=== PATIENT | male | born 1975 | race Caucasian/White ===

== ENCOUNTER 2021-07-30 15:34 | Inpatient (IN) ==
[2021-07-30 16:25] LABS: White Blood Count 7.4 K/mcL (4.3-11.1)
[2021-07-30 16:26] LABS: Basophils % 0.5 %; Eosinophils # 0.1 K/mcL (0.0-0.6); Eosinophils % 0.9 %; Hematocrit 46.8 % (37.5-50.1); Hemoglobin 15.7 g/dL (12.9-16.9); Immature Granulocytes % 0.4 % (0-4); Lymphocytes # 2.4 K/mcL (0.6-4.6); Lymphocytes % 32.7 %; Mean Corpuscular HGB Conc 33.5 g/dL (31.6-35.5); Mean Corpuscular Hemoglobin 28.2 pg (28.0-33.3); Mean Corpuscular Volume 84.2 fL (83.0-100.0); Mean Platelet Volume 10.1 fL (9.4-12.4); Monocytes # 0.3 K/mcL (0.0-1.3); Monocytes % 4.3 %; Neutrophils # 4.6 K/mcL (1.6-8.9); Platelet Count 308 K/mcL (140-400); Red Blood Count 5.56 M/mcL (4.19-5.50); Red Cell Distribution Width 13.3 % (11.5-14.5); Segmented Neutrophils % 61.2 %
[2021-07-30 16:27] LABS: Bilirubin,Urine Negative (Negative); Blood,Urine Negative (Negative); Clarity,Urine Clear (Clear); Color,Urine Light-Yellow (Yellow); Glucose,Urine (UA) Normal (Normal); Ketones,Urine Negative (Negative); Leukocyte Esterase,Urine Negative (Negative); Nitrite,Urine Negative (Negative); Protein,Urine Negative (Neg-Trace); Specific Gravity,Urine 1.013 (1.010-1.025); Urobilinogen,Urine Normal (Normal)
[2021-07-30 16:40] LABS: Amphetamine Screen,Urine Negative ng/mL (Cutoff=1000); Barbiturate Screen,Urine Negative ng/mL (Cutoff=200); Benzodiazepines Screen,Urine Negative ng/mL (Cutoff=200); Cannabinoid Screen,Urine Negative ng/mL (Cutoff = 50); Cocaine Screen,Urine Negative ng/mL (Cutoff= 300); Opiate Screen,Urine Negative ng/mL (Cutoff=300); Phencyclidine Screen,Urine Negative ng/mL (Cutoff=25)
[2021-07-30 16:44] LABS: Acetaminophen < 10 mcg/mL (10-20); BUN/Creatinine Ratio 11 (6-26); Blood Urea Nitrogen 12 mg/dL (6-20); Calcium 9.1 mg/dL (8.6-10.3); Carbon Dioxide 25 mEq/L (23-29); Chloride 106 mEq/L (98-107); Ethanol < 10 mg/dL (Less than 10); Glucose 104 mg/dL (70-105); Osmolality,Calculated 288 (280-300); Potassium 3.6 mEq/L (3.5-5.1); Salicylate < 2.5 mg/dL (15.0-30.0); Sodium 139 mEq/L (136-145); eGFR For African Americans > 60 (> 60); eGFR For Non-African Americans > 60 (> 60)
[2021-07-30 20:53] LABS: Influenza A PCR Negative (Negative); Influenza B PCR Negative (Negative); Resp. Syncytial Virus PCR Negative (Negative)
[2021-07-30 21:53] LABS: SARS-CoV-2 by PCR (In House) Negative (Negative)
[2021-07-30] MEDS ORDERED: *HR* LORazepam 2 MG/ML VIAL IM PRN (22:11)
[2021-07-30] MEDS ORDERED: Acetaminophen 325 MG TABLET PO PRN (22:11)
[2021-07-30] MEDS ORDERED: traZODone 50 MG TABLET PO PRN (22:11)
[2021-07-30] MEDS ORDERED: haloperidoL 5 MG TABLET PO PRN (22:11)
[2021-07-30] MEDS ORDERED: Haloperidol Lactate 5 MG/ML VIAL IM PRN (22:11)
[2021-07-30] MEDS ORDERED: *HR* LORazepam 1 MG TABLET PO PRN (22:11)
[2021-07-31] MEDS ORDERED: Nicotine 2 MG GUM BC PRN (02:47)
[2021-07-31] MEDS ORDERED: Mag Hydrox/Al Hydrox/Simeth 30 ML UDC PO PRN (08:05)
[2021-07-31] MEDS ORDERED: MOM Conc 10 ML UD.LIQ PO PRN (08:05)
[2021-07-31] MEDS: QUEtiapine Fumarate 100 MG TABLET PO SCH (20:56)
[2021-07-31] MEDS: Divalproex (12 HR) 500 MG TABLET PO SCH (20:56)
[2021-07-31] MEDS: hydrOXYzine pamoate 25 MG CAPSULE PO PRN (20:56)
[2021-08-01] MEDS: Divalproex (12 HR) 500 MG TABLET PO SCH ×2 (08:42→20:53)
[2021-08-01] MEDS: QUEtiapine Fumarate 100 MG TABLET PO SCH (20:53)
[2021-08-01] MEDS: hydrOXYzine pamoate 25 MG CAPSULE PO PRN (20:54)
[2021-08-02 08:42] VITALS: BP 120/72; PULSE 87; TEMP 96.9; O2SAT 97
[2021-08-02] MEDS: Divalproex (12 HR) 500 MG TABLET PO SCH (09:45)
== END 2021-08-02 13:04 | disposition home or self-care (01) | DRG 750 ==
LOC: EMEROOARM 15:34 → 1ANU 22:04
PROVIDERS: ADMIT Psychiatry & Neurology Psychiatry; ATTEND Psychiatry & Neurology Psychiatry

== ENCOUNTER 2021-08-13 10:23 | Inpatient (IN) ==
[2021-08-13 10:44] LABS: Bilirubin,Urine Negative (Negative); Blood,Urine Negative (Negative); Clarity,Urine Clear (Clear); Color,Urine Yellow (Yellow); Glucose,Urine (UA) Normal (Normal); Ketones,Urine Trace mg/dL (Negative); Leukocyte Esterase,Urine Negative (Negative); Nitrite,Urine Negative (Negative); PH,Urine 6.5 pH Units (5.0-8.0); Protein,Urine Trace mg/dL (Neg-Trace); Specific Gravity,Urine 1.027 (1.010-1.025); Urobilinogen,Urine Normal (Normal)
[2021-08-13 11:01] LABS: Amphetamine Screen,Urine Negative ng/mL (Cutoff=1000); Barbiturate Screen,Urine Negative ng/mL (Cutoff=200); Benzodiazepines Screen,Urine Negative ng/mL (Cutoff=200); Cannabinoid Screen,Urine Negative ng/mL (Cutoff = 50); Cocaine Screen,Urine Negative ng/mL (Cutoff= 300); Opiate Screen,Urine Negative ng/mL (Cutoff=300); Phencyclidine Screen,Urine Negative ng/mL (Cutoff=25)
[2021-08-13 11:28] LABS: Basophils % 0.3 %; Eosinophils % 0.6 %; Hematocrit 45.7 % (37.5-50.1); Hemoglobin 14.9 g/dL (12.9-16.9); Immature Granulocytes % 0.3 % (0-4); Lymphocytes # 1.5 K/mcL (0.6-4.6); Lymphocytes % 22.6 %; Mean Corpuscular HGB Conc 32.6 g/dL (31.6-35.5); Mean Corpuscular Hemoglobin 28.1 pg (28.0-33.3); Mean Corpuscular Volume 86.2 fL (83.0-100.0); Mean Platelet Volume 10.6 fL (9.4-12.4); Monocytes # 0.4 K/mcL (0.0-1.3); Monocytes % 5.4 %; Neutrophils # 4.8 K/mcL (1.6-8.9); Platelet Count 234 K/mcL (140-400); Red Cell Distribution Width 13.8 % (11.5-14.5); Segmented Neutrophils % 70.8 %; White Blood Count 6.8 K/mcL (4.3-11.1)
[2021-08-13 11:54] LABS: Acetaminophen < 10 mcg/mL (10-20); BUN/Creatinine Ratio 12 (6-26); Blood Urea Nitrogen 13 mg/dL (6-20); Calcium 8.9 mg/dL (8.6-10.3); Carbon Dioxide 25 mEq/L (23-29); Chloride 105 mEq/L (98-107); Ethanol < 10 mg/dL (Less than 10); Glucose 93 mg/dL (70-105); Osmolality,Calculated 288 (280-300); Potassium 3.6 mEq/L (3.5-5.1); Salicylate < 2.5 mg/dL (15.0-30.0); Sodium 139 mEq/L (136-145); eGFR For African Americans > 60 (> 60); eGFR For Non-African Americans > 60 (> 60)
[2021-08-13 14:48] LABS: Influenza A PCR Negative (Negative); Influenza B PCR Negative (Negative); Resp. Syncytial Virus PCR Negative (Negative)
[2021-08-13 14:49] LABS: SARS-CoV-2 by PCR (In House) Negative (Negative)
[2021-08-13] MEDS ORDERED: *HR* LORazepam 1 MG TABLET PO PRN (15:56)
[2021-08-13] MEDS ORDERED: hydrOXYzine pamoate 25 MG CAPSULE PO PRN (15:56)
[2021-08-13] MEDS ORDERED: haloperidoL 5 MG TABLET PO PRN (15:56)
[2021-08-13] MEDS ORDERED: Haloperidol Lactate 5 MG/ML VIAL IM PRN (15:56)
[2021-08-13] MEDS ORDERED: Acetaminophen 325 MG TABLET PO PRN (15:56)
[2021-08-13] MEDS ORDERED: *HR* LORazepam 2 MG/ML VIAL IM PRN (15:56)
[2021-08-13] MEDS: QUEtiapine Fumarate 100 MG TABLET PO SCH (21:28)
[2021-08-14] MEDS ORDERED: Mag Hydrox/Al Hydrox/Simeth 30 ML UDC PO PRN (08:02)
[2021-08-14] MEDS ORDERED: MOM Conc 10 ML UD.LIQ PO PRN (08:02)
[2021-08-14] MEDS: QUEtiapine Fumarate 100 MG TABLET PO SCH (20:31)
[2021-08-14] MEDS: Divalproex (24 HR) 500 MG TABLET PO SCH (20:31)
[2021-08-15] MEDS: QUEtiapine Fumarate 100 MG TABLET PO SCH (20:52)
[2021-08-15] MEDS: Divalproex (24 HR) 500 MG TABLET PO SCH (20:52)
[2021-08-16 09:59] VITALS: BP 124/73; PULSE 88; TEMP 97.4; O2SAT 97
== END 2021-08-16 14:00 | DRG 753 ==
LOC: EMEROOARM 10:23 → 1ANU 15:43
PROVIDERS: ADMIT Psychiatry & Neurology Psychiatry; ATTEND Psychiatry & Neurology Psychiatry